=== PATIENT | male | born 1945 | race Caucasian/White ===

== ENCOUNTER → 2017-01-02 | Outpatient (CLI) | payer OTHER, MEDICARE ==
[~2017-01-02] MED LIST: GADOBUTROL 10 ML VIAL IVP ONE
[2017-01-02 13:50] LABS: CREATININE 1.1 mg/dL (0.7-1.3); GLOMERULAR FILTRATION RATE > 60
== END ==
LOC: FIMAGING 12:41
PROVIDERS: ATTEND Neurological Surgery
DX: M51.36 Other intervertebral disc degeneration, lumbar region (principal); M51.37 Other intervertebral disc degeneration, lumbosacral region; M12.88 Other specific arthropathies, not elsewhere classified, other specified site; M99.73 Connective tissue and disc stenosis of intervertebral foramina of lumbar region; M48.06 Spinal stenosis, lumbar region; M50.31 Other cervical disc degeneration, high cervical region; M50.321 Other cervical disc degeneration at C4-C5 level; M50.322 Other cervical disc degeneration at C5-C6 level; M50.323 Other cervical disc degeneration at C6-C7 level; M48.02 Spinal stenosis, cervical region; M99.71 Connective tissue and disc stenosis of intervertebral foramina of cervical region
CPT/HCPCS: 72141; 72158; A9585

== ENCOUNTER → 2017-07-03 | Outpatient (CLI) | payer OTHER, MEDICARE | LOC: FIMAGING 17:44 | PROVIDERS: ATTEND Internal Medicine Infectious Disease | DX: R05 Cough (principal); R91.8 Other nonspecific abnormal finding of lung field; I51.7 Cardiomegaly; I27.2 Other secondary pulmonary hypertension | CPT/HCPCS: 82495-90 ==

== ENCOUNTER → 2017-07-06 | Outpatient (CLI) | payer OTHER, MEDICARE | LOC: BHFA 13:15 | PROVIDERS: ATTEND Internal Medicine Cardiovascular Disease | DX: I35.1 Nonrheumatic aortic (valve) insufficiency (principal) ==

== ENCOUNTER 2017-11-17 04:34 | Emergency (ER) | payer OTHER, MEDICARE ==
[2017-11-17 04:42] VITALS: RESP 18
--- NOTE | 2017-11-17 04:42 | EDPHY ---
H & P HPI/ROS: HPI CHIEF COMPLAINT: Pruritis after taking Oxycodone 20mg x 2, Right Hand Weakness. HISTORY OF PRESENT ILLNESS: This patient very pleasant 72-year-old male, significant past medical history for chronic neck and back pain, and states that he needs a cervical fusion. He states that his neck pain and low back pain acted up earlier yesterday and therefore he took oxycodone 20 mg x2 doses around 930 last night. He reports to me that after doing this he became a itchy all over and he thought he was having an allergic reaction. His pruritus has persisted throughout the night so decided come to the emergency room at 5: 00 a.m. for evaluation. He denies any trouble breathing. He denies shortness of breath or chest pain. Denies vomiting or GI upset. Main complaint is pruritus. Additionally reports to me that due to his extensive neck and back pain that she deals with chronically and intermittently takes oxycodone for pain control he states that he typically massage his back by laying on a baseball and rolling around on his back for approximately an hour. Additionally he has a back massager that he takes and presses on his right side of his back to relieve pain. He states that after doing this he noticed around 930 a.m. here yesterday morning he developed some right hand weakness/wrist weakness unable to extend at the right wrist. He states he had trouble controlling his hand and trouble with fine motor. This happened after he was massaging his back. Additionally patient states this eventually resolved and then around 930PM last night he was doing the exercise with a baseball rolling around on his back and additionally using massager and again developed some right hand weakness/ weakness of wrist extension. He denies any right upper extremity weakness. That weakness is located to his right hand. He denies any focal numbness or tingling. Denies headache chest pain or shortness of breath. He additionally reports to me that when he tried to turn achy in his car to come here in the emergency room he had uses opposite hand as his right hand was weak and unable to perform this task. 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 This is still present. He states been present since 930 last night. Or approximately 7 and half to 8 hr ago. Past Medical History: Degenerative disc disease of the cervical spine and lumbar spine, cervical radiculopathy, Bipolar disorder, depression, bacterial endocarditis, pulmonary stenosis, MUNIR, vitamin-D deficiency, low testosterone, aortic insufficiency Past Surgical History: Pulmonic valve replacement Social History: Denies daily use of drugs alcohol tobacco. Family History: Noncontributory ROS REVIEW OF SYSTEMS: A comprehensive 10 point review of systems is otherwise negative aside from elements mentioned in the history of present illness. Exam Constitutional triage nursing summary reviewed, vital signs reviewed, awake/ alert. Eyes normal conjunctivae and sclera, EOMI, PERRLA. HENT normal inspection, atraumatic, moist mucus membranes, no epistaxis, neck supple/ no meningismus, no raccoon eyes. Respiratory clear to auscultation bilaterally, normal breath sounds, no respiratory distress, no wheezing. Cardiovascular rate normal, regular rhythm, no murmur, no edema, distal pulses normal. Gastrointestinal soft, non-tender, no rebound, no guarding, normal bowel sounds, no distension, no pulsatile mass. Genitourinary no CVA tenderness. Musculoskeletal right upper extremity: Good upper extremity strength except to the hand. When I asked him to extend his wrist on the right compared to left right is profoundly weak, additionally his cytology supervisor strength on the right is slightly weak compared to left. He is right upper extremity appears to be normal strength specifically normal biceps flexion, able to flex forcefully as well as extend forcefully at the elbow. no midline vertebral tenderness, full range of motion, no calf swelling, no tenderness of extremities, no meningismus , good pulses, neurovascularly intact. Skin pink, warm, & dry, no rash, skin atraumatic. Neurologic awake, alert and oriented x 3, AAOx3, moves all 4 extremities equally, motor intact, sensory intact, CN II-XII intact, normal cerebellar, normal vision, normal speech. Otherwise unremarkable neurological exam, except for weakness of the right wrist. Unable to fully dorsiflex. Appears to be radial nerve injury. Psychiatric normal mood/affect. Heme/Lymph/Immune no lymphadenopathy. Differential Diagnosis: Includes but is not limited to in a particular order: This includes radial nerve palsy, radial nerve injury, adverse reaction to the oxycodone, narcotic induced pruritus, electrolyte disturbance, acute CVA Medical Decision Making: Plan for this patient will stab incision IV, Benadryl be given for counter traction of the oxycodone pruritus, check basic blood work , CT scan head without contrast, EKG and basic blood work. Re-evaluation: EKG interpretation by me on record in [facility] system. Impression time of EKG 5:02 a.m., sinus rhythm with a right bundle-branch block present. Significant T-wave abnormalities in ST depression in V1 V2 and V3 present. When I compare this to his old EKG dated 09/19/2016 it is exactly the same morphology. I do not appreciate acute change today. 0529AM: Spoke with Dr. Yu Rizvi with [facility] we discussed this case at length. She feels that this is most likely a radial nerve palsy. Recommends that he does not do these vigorous back massage his. Additionally recommends follows up with Neurology outpatient. Additionally recommends seeing primary care doctor for occupational therapy for this radial nerve palsy. Additionally recommends if the symptoms persist they may need to perform MRI of the cervical spine and EMG testing. I have discussed this with the patient. Will refer him to outpatient neurology and his primary care doctor. Recommend not massaging his back at this time. CT scan head without contrast called to me by Dr. Olivas; negative for acute bleed or stroke. Discussed at length about the patient's reaction to oxycodone. Recommend Benadryl if he does take the oxycodone for pain control. This will help him with his pruritus. Additionally as for his right wrist weakness and hand weakness is most likely a right radial nerve palsy. Recommend following up his primary care doctor and Neurology on outpatient basis. Recommend OT. Additionally recommend no aggressive back massage as this may be contributing to this. Source: Patient - Medical/Surgical History Hx Asthma: No Hx Chronic Respiratory Disease: No Hx Diabetes: No Hx Cardiac Disease: Yes Hx Renal Disease: No Hx Cirrhosis: No Hx Alcoholism: No Hx HIV/AIDS: No Hx Splenectomy or Spleen Trauma: No Other PMH: 1994 REPLACED PULMONIC VALVE WITH TISSUE FOR ENDOCARDITIS, , GLAUCOMA , O.A. LEFT HIP REPLACEMENT, SPINAL STENOSIS, BIPOLAR DISORDER AND DEPRESSION - Social History Smoking Status: Former smoker Constitutional: Initial Vital Signs Temperature (C) 37 C 11/17/17 04:36 Heart Rate 103 H 11/17/17 04:36 Respiratory Rate 18 11/17/17 04:36 Blood Pressure 187/85 H 11/17/17 04:36 O2 Sat (%) 95 11/17/17 04:36 O2 Delivery Mode Room Air Allergies/Adverse Reactions: Penicillins Allergy (Severe, Verified 09/19/16 22:15) Anaphylaxis Home Medications: Medication Instructions Recorded ALPRAZolam [Xanax 1 MG (*)] 1 - 2 mg PO DAILY PRN 08/31/10 Gabapentin [Neurontin 100 MG (*)] 200 mg PO BID 09/13/12 Lisinopril 10 mg PO DAILY@09/13/12 busPIRone [Buspar (*)] 15 mg PO BID 09/13/12 lamoTRIgine [Lamictal] 200 mg PO DAILY@09/13/12 Methylphenidate HCl [Ritalin 20mg 40 mg PO DAILY@10 PRN 08/07/14 (*)] Venlafaxine HCl [Effexor] 100 mg PO TID 08/07/14 Mirtazapine [Remeron] 30 mg PO HS 09/17/16 Zolpidem Tartrate [Ambien 10 mg] 10 mg PO HS PRN 09/17/16 oxyCODONE IR [Oxycodone Ir (*)] 10 mg PO QID PRN 09/17/16 Acetaminophen [Tylenol 325mg (*)] 650 mg PO Q4HRS PRN #0 tab 09/18/16 Cholecalciferol Vit D3 [Vitamin D3 5,000 units PO DAILY 09/18/16 (*)] Medical Decision Making - Data Points Laboratory Results: Laboratory Results 11/17/17 05:20 11/17/17 11/17/17 11/17/17 05:20 05:20 05:20 WBC 7.52 10^3/uL 10^3/uL (3.80-9.50) RBC 5.30 10^6/uL 10^6/uL (4.40-6.38) Hgb 16.3 g/dL g/dL (13.7-17.5) Hct 48.4 % % (40.0-51.0) MCV 91.3 fL fL (81.5-99.8) MCH 30.8 pg pg (27.9-34.1) MCHC 33.7 g/dL g/dL (32.4-36.7) RDW 13.8 % % (11.5-15.2) Plt Count 188 10^3/uL 10^3/uL (150-400) MPV 11.2 fL fL (8.7-11.7) Neut % (Auto) 59.8 % % (39.3-74.2) Lymph % (Auto) 25.7 % % (15.0-45.0) [place] % (Auto) 8.1 % % (4.5-13.0) Eos % (Auto) 4.0 % % (0.6-7.6) Baso % (Auto) 1.3 % % (0.3-1.7) Nucleat RBC Rel Count 0.0 % % (0.0-0.2) Absolute Neuts (auto) 4.50 10^3/uL 10^3/uL (1.70-6.50) Absolute Lymphs (auto) 1.93 10^3/uL 10^3/uL (1.00-3.00) Absolute Monos (auto) 0.61 10^3/uL 10^3/uL (0.30-0.80) Absolute Eos (auto) 0.30 10^3/uL 10^3/uL (0.03-0.40) Absolute Basos (auto) 0.10 10^3/uL 10^3/uL (0.02-0.10) Absolute Nucleated RBC 0.00 10^3/uL 10^3/uL (0-0.01) Immature Gran % 1.1 % % (0.0-1.1) Immature Gran # 0.08 10^3/uL 10^3/uL (0.00-0.10) PT Pending INR Pending Sodium Pending Potassium Pending Chloride Pending Carbon Dioxide Pending Anion Gap Pending BUN Pending Creatinine Pending Estimated GFR Pending Glucose Pending Calcium Pending Troponin I Pending Medications Given: Discontinued Medications Diphenhydramine HCl (Benadryl) 50 mg PO EDNOW ONE Stop: 11/17/17 05:19 Last Admin: 11/17/17 05:41 Dose: 50 mg Sodium Chloride (Ns) 1,000 mls @ 0 mls/hr IV ONCE ONE; Wide Open PRN Reason: Protocol Stop: 11/17/17 04:57 Last Admin: 11/17/17 05:40 Dose: 1,000 mls Departure - Departure Disposition: Home, Routine, Self-Care Clinical Impression: Allergic reaction Qualifiers: Encounter type: initial encounter Qualified Code(s): T78.40XA - Allergy, unspecified, initial encounter Radial nerve palsy Qualifiers: Laterality: right Qualified Code(s): G56.31 - Lesion of radial nerve, right upper limb Condition: Good Instructions: Radial Nerve Palsy (ED), Adverse Drug Reaction (ED) Additional Instructions: 1. Follow up with her primary care doctor. 2. You may need occupational physical therapy for your right wrist weakness and hand weakness. 3. I would refrain from doing significant back massage. 4. Return emergency room if you have worsening symptoms questions or concerns. Referrals: Joaquim Juan MD [Primary Care Provider] - As per Instructions Carlos Moreno MD [Medical Doctor] - As per Instructions
[2017-11-17] MEDS ORDERED: NS 1,000 ML IV ONE (04:56)
--- NOTE | 2017-11-17 05:03 | CPEKG ---
Heart Rate: 84 RR Interval: 714 P-R Interval: 168 QRSD Interval: 148 QT Interval: 388 QTC Interval: 459 P Randle: 50 QRS Randle: 24 T Wave Randle: 27 EKG Severity - ABNORMAL ECG - EKG Impression: SINUS RHYTHM EKG Impression: RIGHT BUNDLE BRANCH BLOCK Electronically Signed By: Arpan Curtis 19-Nov-2017 20:30:49
[2017-11-17] MEDS ORDERED: diphenhydrAMINE 25 MG CAP PO ONE (05:18)
[2017-11-17 05:37] LABS: PLATELET COUNT 188 10^3/uL (150-400)
[2017-11-17 05:43] VITALS: BP 146/80; PULSE 84; TEMP 99.1; O2SAT 89
[2017-11-17 06:03] LABS: INR 1.07 (0.83-1.16); PROTIME(PATIENT) 14.1 SEC (12.0-15.0)
== END 2017-11-17 06:13 | disposition home or self-care (01) ==
PROC: 3E0337Z Introduction of Electrolytic and Water Balance Substance into Peripheral Vein, Percutaneous Approach (ICD-10-PCS; principal; 2017-11-17)
DX: G56.31 Lesion of radial nerve, right upper limb (principal); T40.2X5A Adverse effect of other opioids, initial encounter; E86.9 Volume depletion, unspecified; Z87.891 Personal history of nicotine dependence

== ENCOUNTER → 2018-02-21 | Outpatient (CLI) | payer OTHER, MEDICARE ==
[~2018-02-21] MED LIST changes: -GADOBUTROL 10 ML VIAL IVP ONE; +IOPAMIDOL (ISOVUE 370) 100 ML BTL IV ONE
== END ==
LOC: FIMAGING 11:23
PROVIDERS: ATTEND Internal Medicine Interventional Cardiology
DX: Z09 Encounter for follow-up examination after completed treatment for conditions other than malignant neoplasm (principal); I25.10 Atherosclerotic heart disease of native coronary artery without angina pectoris; I37.0 Nonrheumatic pulmonary valve stenosis; Z95.2 Presence of prosthetic heart valve
CPT/HCPCS: 71275; Q9967

== ENCOUNTER → 2018-02-27 | Outpatient (CLI) | payer OTHER, MEDICARE | LOC: BHFA 14:00 | PROVIDERS: ATTEND Internal Medicine Cardiovascular Disease | DX: I35.9 Nonrheumatic aortic valve disorder, unspecified (principal) ==

== ENCOUNTER → 2018-05-19 | Outpatient (CLI) | payer OTHER, MEDICARE | LOC: FIMAGING 08:13 | PROVIDERS: ATTEND Neurological Surgery | DX: M54.5 Low back pain (principal); M54.2 Cervicalgia ==

== ENCOUNTER → 2018-09-20 | Outpatient (CLI) | payer OTHER, MEDICARE | LOC: BHFA 10:45 | PROVIDERS: ATTEND Internal Medicine | DX: I77.9 Disorder of arteries and arterioles, unspecified (principal); I37.9 Nonrheumatic pulmonary valve disorder, unspecified; I71.9 Aortic aneurysm of unspecified site, without rupture ==

== ENCOUNTER → 2019-01-03 | Outpatient (CLI) | payer OTHER, MEDICARE | LOC: FIMAGING 16:59 | PROVIDERS: ATTEND Physician Assistant | DX: R05 Cough (principal) ==

== ENCOUNTER → 2019-03-17 | Outpatient (CLI) | payer OTHER, MEDICARE | LOC: FCPNEURO 20:00 | PROVIDERS: ATTEND Psychiatry & Neurology Sleep Medicine | DX: G47.33 Obstructive sleep apnea (adult) (pediatric) (principal) ==